=== PATIENT | female | born 1965 | race Caucasian/White ===

== ENCOUNTER 2022-08-02 16:40 | Emergency (ER) | payer OTHER, SELFPAY ==
[2022-08-02 16:45] VITALS: BP 157/96; PULSE 107; RESP 18; TEMP 37.1; O2SAT 99; BMI 53.9
--- NOTE | 2022-08-02 17:20 | CRLHL7_ITS ---
For Patients: As a result of the Cures Act, medical imaging exams and procedure reports are released immediately into your electronic medical record. You may view this report before your referring provider. If you have questions, please contact your health care provider. INDICATION: Abdominal pain, jaundice. TECHNIQUE: Ultrasound abdomen limited. Sonographic images of the right upper quadrant were obtained using hurtado-scale and color Doppler images. COMPARISON: CT same day. FINDINGS: Liver: Borderline hepatomegaly with mildly heterogeneous echotexture. Multiple isoechoic/mildly hypoechoic hepatic lesions, at least 4 involving the right and left hepatic lobes measuring up to 3.3 x 1.3 x 1.7 cm. Gallbladder: No stones or sludge. Normal wall thickness. No pericholecystic fluid. Common bile duct: 3 mm. Intrahepatic ductal dilatation. Pancreas: Unremarkable. Right kidney: Normal in size. Normal echotexture and cortex. No suspicious masses, stones, or hydronephrosis. Vasculature: Proximal abdominal aorta and IVC are unremarkable. IMPRESSION: Multiple isoechoic/mildly hypoechoic hepatic lesions, at least 4 involving the right and left hepatic lobes measuring up to 3.3 x 1.3 x 1.[address] of same day for further characterization. Dictated by Miles Motley MD @ 08/02/2022 7:15:55 PM (Electronically Signed)
--- NOTE | 2022-08-02 18:00 | CRLHL7_ITS ---
For Patients: As a result of the 21st Century Cures Act, medical imaging exams and procedure reports are released immediately into your electronic medical record. You may view this report before your referring provider. If you have questions, please contact your health care provider. INDICATION: Right upper quadrant pain. TECHNIQUE: CT of the abdomen and pelvis with 72 cc Isovue 370 IV contrast. Coronal and sagittal reconstructions. COMPARISON: None. FINDINGS: There is a 2.6 x 3.5 cm hypoenhancing mass in the pancreatic tail with surrounding spiculation (series 2, image 51). Findings most likely represent pancreatic adenocarcinoma. No dilation of the main pancreatic duct. Occlusion of the distal splenic vein with collateral vessel formation in the left upper quadrant. There are multiple hypoenhancing lesions in the liver which are likely metastatic. Heterogeneously enhancing metastatic lymphadenopathy in the patsy hepatis which causes narrowing of the common bile duct and moderate intrahepatic bile duct dilation. Narrowing of the left portal vein. Hepatic and portal veins otherwise appear patent. Multiple small hypoenhancing lesions throughout the spleen are likely metastatic. The gallbladder and right adrenal gland are negative. Indeterminate 1.8 cm left adrenal nodule. Symmetric enhancement of the kidneys. Small right renal cyst. No hydronephrosis or ureteral dilation. No obstructing urinary calculi identified. The bladder is normal in appearance. Retroverted uterus. Prominent periuterine vessels. No adnexal mass. No small bowel dilation. Moderate to large amount of stool throughout the colon. The appendix is not identified. No intraperitoneal free air or fluid. Tiny fat containing umbilical hernia. 3 mm noncalcified pulmonary nodule in the posterior right lower lobe (series 3, image 14). Calcified granuloma medial right lower lobe. Probable focus of mediastinal fat along the inferior right hilum. The lung bases are otherwise clear. No suspicious osseous lesions. IMPRESSION: 1. Hypoenhancing mass in the pancreatic tail most likely represents pancreatic adenocarcinoma. 2. Multiple hypoenhancing lesions in the liver and spleen are likely metastatic. Indeterminate left adrenal nodule. 3. Heterogeneously enhancing patsy hepatis lymphadenopathy causing narrowing of the common bile duct with moderate intrahepatic bile duct dilation. 4. Occlusion of the distal splenic vein with collateral vessel formation. Narrowing of the left portal vein. 5. 3 mm noncalcified pulmonary nodule in the right lower lobe. Recommend attention on follow-up. 6. Findings discussed with Rico Prieto at 7:35 p.m. on 08/02/2022. Please note that all CT scans at this facility use dose modulation, iterative reconstruction, and/or weight-based dosing when appropriate to reduce radiation dose to as low as reasonably achievable. Dictated by Leonor Spviey MD @ 08/02/2022 7:36:30 PM (Electronically Signed)
[2022-08-02] MEDS: 0.9 % SODIUM CHLORIDE 1000 ml 1,000 ML IV (18:03)
[2022-08-02] MEDS: KETOROLAC 30 MG/ML inj IVP (18:03)
[2022-08-02] MEDS: ONDANSETRON 2 MG/ML inj 4 MG IVP (18:03)
[2022-08-02 18:08] LABS: Appearance Urine Clear (Clear); Bilirubin Urine Negative (Negative); Blood Urine Trace-intact (Negative); Color Urine Yellow (Yellow); Glucose Urine Negative (Negative); Ketones Urine Negative (Negative); Leukocyte Esterase Urine 1+ (Negative); Nitrite Urine Negative (Negative); Protein Urine Negative (Negative); Specific Gravity Urine <= 1.005 (1.000-1.030); Urobilinogen Urine 0.2 (0.2-1.0); pH Urine 5.5 (5.0-8.5)
--- NOTE | 2022-08-02 18:18 | ED.GENADULT ---
HPI - General Adult General Date Seen: 08/02/22 Chief complaint: Abdominal Pain Stated complaint: Gall Bladder Issues - Yellow Eyes Time Seen by Provider: 08/02/22 16:56 Source: patient and other (Friend) Mode of arrival: ambulatory Limitations: no limitations History of Present Illness HPI narrative: Patient is a 57-year-old female presents for the above test, she describes right upper quadrant pain she has had on off for the past week to 10 days, reason ultrasound scheduled on Tuesday, but pain became worse today, she has had no fevers or chills, no nausea vomiting, notices that all food tends to cause this worsening of her discomfort, but not seemingly worse with certain types of food. She has not tried any medication for this, no past history of any surgeries, she has taken no medications for this denies any alcohol drugs. Other than the of children has otherwise been fine. Treatments prior to arrival: none Related Data Allergies Allergy/AdvReac Type Severity Reaction Status Date / Time No Known Drug Allergies Allergy Verified 08/02/22 16:49 Review of Systems Status of ROS: Reports: 10 or more systems reviewed and unremarkable except as noted in History and below PFSH [facility] Social History Smoking Status: Never smoker How often do you have a drink containing alcohol: never AUDIT-C Alcohol total score: 0 Non-prescribed substance use: denies use Exam Narrative: Exam Narrative: Patient is seen in room six, she is in no apparent distress speaking to me normally, pupils are equal round reactive to light there is no scleral icterus or redness, TMs are normal, oropharynx is normal, her chest is clear bilaterally with no wheezing crackles noted, heart sounds no clicks murmurs or gallops, abdomen is soft there is no guarding, but she is sore in the right upper quadrant on deep palpation. Bowel sounds are normal, no other organomegaly noted. She moves all extremities independently and well. Const: Vital Signs, click to edit/add: Vital Signs - 24 hr 08/02/22 16:45 08/02/22 19:12 Temperature 98.8 F Pulse Rate [Pulse Oximeter] 107 H 73 Respiratory Rate 18 18 Blood Pressure [Ri ght Upper Arm] 157/96 H 120/62 Pulse Oximetry 99 99 Oxygen Delivery Me thod Room Air Room Air Documenting provider has reviewed patient's vital signs: yes Course Course Hospital Course: I discussed with the patient and the patient's friend, then there also there friend who is a doctor. She has a mass in her pancreatic head, characteristic of adenocarcinoma, I reviewed this with Radiology. There is also and metastatic lesions to her spleen or liver. This is a very unfortunate finding, she will need to see Oncology, and I discussed this with her and her friend. I discussed the case with her friend who is a physician at the [facility] pediatric surgeon, he will getting contact with Canelo Segundo MD Oncology. I gave her prescription for some Percocet she can use for right upper quadrant pain, we went over the risks benefits and side effects of this. Vital Signs Vital signs: Initial Vital Signs Temperature 98.8 F 08/02/22 16:45 Temperature Source Temporal Artery Scan 08/02/22 16:45 Pulse Rate 107 H 08/02/22 16:45 Pulse Rhythm 08/02/22 16:45 Pulse Strength 3+ Normal 08/02/22 16:45 Respiratory Rate 18 08/02/22 16:45 Blood Pressure 157/96 H 08/02/22 16:45 Blood Pressure Mean 116 08/02/22 16:45 Blood Pressure Position Sitting 08/02/22 16:45 Pulse Oximetry 99 08/02/22 16:45 Oxygen Delivery Method 08/02/22 16:45 Vital Signs Temperature 98.8 F 08/02/22 16:45 Pulse Rate 107 H 08/02/22 16:45 Respiratory Rate 18 08/02/22 16:45 Blood Pressure 157/96 H 08/02/22 16:45 Pulse Oximetry 99 08/02/22 16:45 Oxygen Delivery Method 08/02/22 16:45 Temperature 98.8 F 08/02/22 16:45 Pulse Rate 73 08/02/22 19:12 Respiratory Rate 18 08/02/22 19:12 Blood Pressure 120/62 08/02/22 19:12 Pulse Oximetry 99 08/02/22 19:12 Oxygen Delivery Method 08/02/22 19:12 Medical Decision Making MDM Narrative Medical decision making narrative: During the evaluation of this patient I considered multiple differential diagnosis including life-threatening differentials which are appendicitis, aortic aneurysm, mesenteric ischemia, bowel perforation, ectopic , volvulus and bowel obstruction, other differential diagnosis include but are not limited to inflammatory bowel disease, cholecystitis, pancreatitis, hepatitis, gastritis, GERD, diverticulitis, peptic ulcer disease, pyelonephritis/UTI, renal colic/stone, pelvic inflammatory disease, cervicitis, endometritis, intrauterine , dysfunctional uterine bleeding, ovarian cyst/torsion, spontaneous as well as other etiologies Lab Data Lab results reviewed: Yes I reviewed the patient's lab results Labs: Lab Results 08/02/22 08/02/22 08/02/22 Range/Units 17:20 17:55 17:55 WBC 11.36 H (4.50-11.00) K/uL RBC 5.15 (4.00-5.20) m/uL Hgb 14.1 (12.0-16.0) gm/dL Hct 43.6 (33.0-51.0) % MCV 85 (80-100) fL MCH 27 (26-34) pg MCHC 32 (32-36) gm/dL RDW Coeff of [place] 13.8 (11.5-15.5) % Plt Count 331 (140-440) K/uL Neut % (Auto) 76.1 H (42.0-72.0) % Lymph % (Auto) 12.2 L (20-44) % [place] % (Auto) 8.9 (0.0-11.0) % Eos % (Auto) 2.2 (0.0-7.0) % Baso % (Auto) 0.4 (0.0-3.0) % Neut # (Auto) 8.60 H (1.7-7.0) K/uL Lymph # (Auto) 1.40 (0.90-2.90) K/uL [place] # (Auto) 1.00 H (0.00-0.90) K/UL Eos # (Auto) 0.20 (0.00-0.50) K/uL Baso # (Auto) 0.00 (0.00-0.30) K/uL Sodium 138 (135-149) mmol/L Potassium 3.8 (3.6-5.1) mmol/L Chloride 103 (96-114) mmol/L Carbon Dioxide 28 (20-32) mmol/L BUN 7 (7-30) mg/dL Creatinine 0.6 (0.5-1.5) mg/dL Estimated Creat Clear 94.21 Estimated GFR 105 ml/min Glucose 110 (60-115) mg/dL Calcium 9.6 (8.4-10.6) mg/dL Total Bilirubin 4.3 H (0.1-1.5) mg/dL Direct Bilirubin 3.3 H (0.0-0.5) mg/dL AST 212 H (12-35) U/L ALT 505 H (4-35) U/L Alkaline Phosphatase 515 H (40-150) U/L C-Reactive Protein 2.8 H (0.5-1.0) mg/dL Total Protein 8.3 (6.0-8.3) g/dL Albumin 4.6 (3.3-5.0) g/dL Amylase 87 (18-89) U/L Lipase 110 (23-300) U/L Urine Color Yellow (Yellow) Urine Appearance Clear (Clear) Urine pH 5.5 (5.0-8.5) Ur Specific [place] <= 1.005 (1.000-1.030) Urine Protein Negative (Negative) Urine Glucose (UA) Negative (Negative) Urine Ketones Negative (Negative) Urine Blood Trace-intact A (Negative) Urine Nitrite Negative (Negative) Urine Bilirubin Negative (Negative) Urine Urobilinogen 0.2 (0.2-1.0) Ur Leukocyte Esterase 1+ A (Negative) Urine RBC 0-2 (0-2) Urine WBC 0-2 (0-5) Ur Squamous Epith Cells Few (None-Few) Urine Bacteria None (None) Imaging Data CT scan - abdomen: Radiologist's impression: atient: JOSE HO Facility:?[facility] Patient ID:?[id number] Site Patient ID:?[id number]. Site :?[id number] Study:?US Abdomen [facility]-08/02/2022 6:37:42 PM Ordering Physician:Danica Gómez Final Report: INDICATION: Abdominal pain, jaundice. TECHNIQUE: Ultrasound abdomen limited. Sonographic images of the right upper quadrant were obtained using hurtado-scale and color Doppler images. COMPARISON: CT same day. FINDINGS: Liver: Borderline hepatomegaly with mildly heterogeneous echotexture. Multiple isoechoic/mildly hypoechoic hepatic lesions, at least 4 involving the right and left hepatic lobes measuring up to 3.3 x 1.3 x 1.7 cm. Gallbladder: No stones or sludge. Normal wall thickness. No pericholecystic fluid. Common bile duct: 3 mm. Intrahepatic ductal dilatation. Pancreas: Unremarkable. Right kidney: Normal in size. Normal echotexture and cortex. No suspicious masses, stones, or hydronephrosis. Vasculature: Proximal abdominal aorta and IVC are unremarkable. IMPRESSION: Multiple isoechoic/mildly hypoechoic hepatic lesions, at least 4 involving the right and left hepatic lobes measuring up to 3.3 x 1.3 x 1.[address] of same day for further characterization. Dictated by Miles Motley MD @ 08/02/2022 7:15:55 PM (Electronic Signature) Patient: JOSE HO Facility:?[facility] Patient ID:?[id number] Site Patient ID:?[id number]. Site :?[id number] Study:?CT Abdomen/Pelvis W/IV CONTRAST-08/02/2022 6:35:04 PM Ordering Physician:?Conner Gómez Final Report: INDICATION: Right upper quadrant pain. TECHNIQUE: CT of the abdomen and pelvis with 72 cc Isovue 370 IV contrast. Coronal and sagittal reconstructions. COMPARISON: None. FINDINGS: There is a 2.6 x 3.5 cm hypoenhancing mass in the pancreatic tail with surrounding spiculation (series 2, image 51). Findings most likely represent pancreatic adenocarcinoma. No dilation of the main pancreatic duct. Occlusion of the distal splenic vein with collateral vessel formation in the left upper quadrant. There are multiple hypoenhancing lesions in the liver which are likely metastatic. Heterogeneously enhancing metastatic lymphadenopathy in the patsy hepatis which causes narrowing of the common bile duct and moderate intrahepatic bile duct dilation. Narrowing of the left portal vein. Hepatic and portal veins otherwise appear patent. Multiple small hypoenhancing lesions throughout the spleen are likely metastatic. The gallbladder and right adrenal gland are negative. Indeterminate 1.8 cm left adrenal nodule. Symmetric enhancement of the kidneys. Small right renal cyst. No hydronephrosis or ureteral dilation. No obstructing urinary calculi identified. The bladder is normal in appearance. Retroverted uterus. Prominent periuterine vessels. No adnexal mass. No small bowel dilation. Moderate to large amount of stool throughout the colon. The appendix is not identified. No intraperitoneal free air or fluid. Tiny fat containing umbilical hernia. 3 mm noncalcified pulmonary nodule in the posterior right lower lobe (series 3, image 14). Calcified granuloma medial right lower lobe. Probable focus of mediastinal fat along the inferior right hilum. The lung bases are otherwise clear. No suspicious osseous lesions. IMPRESSION: 1. Hypoenhancing mass in the pancreatic tail most likely represents pancreatic adenocarcinoma. 2. Multiple hypoenhancing lesions in the liver and spleen are likely metastatic. Indeterminate left adrenal nodule. 3. Heterogeneously enhancing patsy hepatis lymphadenopathy causing narrowing of the common bile duct with moderate intrahepatic bile duct dilation. 4. Occlusion of the distal splenic vein with collateral vessel formation. Narrowing of the left portal vein. 5. 3 mm noncalcified pulmonary nodule in the right lower lobe. Recommend attention on follow-up. 6. Findings discussed with Rico Prieto at 7:35 p.m. on 08/02/2022. Please note that all CT scans at this facility use dose modulation, iterative reconstruction, and/or weight-based dosing when appropriate to reduce radiation dose to as low as reasonably achievable. Dictated by Leonor Spivey MD @ 08/02/2022 7:36:30 PM (Electronic Signature) Discharge Plan Discharge Clinical Impression: Mass of pancreas Patient Disposition: Home w/ Parent or Adult Condition: Stable Additional Instructions: Home rest follow-up with oncology per your choice. If I can be of any help please do not hesitate to reach out. Follow Up/Referrals: Provider,Not a Local [Primary Care Provider] - Stand Alone Forms: MyHealth Info Instructions
[2022-08-02 18:23] LABS: Albumin* 4.6 g/dL (3.3-5.0); Chloride* 103 mmol/L (96-114); Sodium* 138 mmol/L (135-149)
[2022-08-02 18:24] LABS: Potassium* 3.8 mmol/L (3.6-5.1)
[2022-08-02 18:26] LABS: Amylase* 87 U/L (18-89); Bilirubin Direct* 3.3 mg/dL (0.0-0.5); Bilirubin Total* 4.3 mg/dL (0.1-1.5); Carbon Dioxide* 28 mmol/L (20-32); Creatinine* 0.6 mg/dL (0.5-1.5); Est. Creatinine Clearance* 94.21; Estimated Glomerular Filt Rate 105 ml/min; Total Protein* 8.3 g/dL (6.0-8.3)
[2022-08-02 18:27] LABS: Alanine Aminotransferase* 505 U/L (4-35); Alkaline Phosphatase* 515 U/L (40-150); Aspartate Amino Transferase* 212 U/L (12-35); Blood Urea Nitrogen* 7 mg/dL (7-30); Calcium* 9.6 mg/dL (8.4-10.6); Glucose* 110 mg/dL (60-115); Lipase* 110 U/L (23-300)
[2022-08-02 18:29] LABS: C Reactive Protein* 2.8 mg/dL (0.5-1.0)
[2022-08-02 18:47] LABS: RBC Urine 0-2 (0-2); Squamous Epithelial Cell Urine Few (None-Few); WBC Urine 0-2 (0-5)
[2022-08-02 19:12] VITALS: BP 120/62; PULSE 73; RESP 18; O2SAT 99
[2022-08-02 19:25] LABS: Basophils Percent Auto 0.4 % (0.0-3.0); Eosinophils Percent Auto 2.2 % (0.0-7.0); Hematocrit 43.6 % (33.0-51.0); Hemoglobin* 14.1 gm/dL (12.0-16.0); Immature Granulocytes Pct Auto 0.2 %; Lymphocytes Percent Auto 12.2 % (20-44); Mean Corpuscular HGB Conc 32 gm/dL (32-36); Mean Corpuscular Hemoglobin 27 pg (26-34); Mean Corpuscular Volume 85 fL (80-100); Monocytes Percent Auto 8.9 % (0.0-11.0); Neutrophils Percent Auto 76.1 % (42.0-72.0); Platelet Count* 331 K/uL (140-440); RDW Coefficient of Variation % 13.8 % (11.5-15.5); Red Blood Count 5.15 m/uL (4.00-5.20); Slide Review Reflex No; White Blood Count* 11.36 K/uL (4.50-11.00)
--- NOTE | 2022-08-02 21:04 | ED.NURSE ---
Images were sent to [facility]. Radiologist dictation printed and sent with patient.
== END 2022-08-02 21:07 | disposition home or self-care (01) ==
PROVIDERS: Emergency Provider Family Medicine
DX: K86.89 Other specified diseases of pancreas (principal)
CPT/HCPCS: 36415; 74177; 76705; 80048; 80076; 81001; 82150; 83690; 85025; 86140; 96374; 96375; 99285; J1885; J2405; J7030; Q9967